=== PATIENT | male | born 1970 | race Native Hawaiian/Other Pacific Islander ===

== ENCOUNTER 2020-12-04 10:08 | Emergency (ER) | payer BC ==
[~2020-12-04] VITALS: Ht 172.7 cm; Wt 101.6 kg
[2020-12-04 10:17] VITALS: TEMP 98.3
[2020-12-04 11:10] LABS: POTASSIUM 3.7 mmol/L (3.6-5.2); SODIUM 138 mmol/L (136-145)
[2020-12-04 12:41] LABS: PLATELET COUNT 263 K/uL (142-355)
[2020-12-04 17:45] VITALS: BP 99/64
== END 2020-12-04 17:45 | disposition home or self-care (01) ==
LOC: ED 10:08
PROVIDERS: Emergency Medicine Emergency Medical Services
DX: R00.0 Tachycardia, unspecified (principal); I49.8 Other specified cardiac arrhythmias; Z20.828 Contact with and (suspected) exposure to other viral communicable diseases
CPT/HCPCS: 80053; 81000; 84443; 84484; 85027; 85379; 86147; 87502; 87635; 93005; 96360; 96361; 96374; 96375; 96376; 99284; J3490; U0003

== ENCOUNTER 2022-09-02 16:44 | Outpatient (CLI) | payer BC | END 2022-09-02 19:08 | disposition home or self-care (01) | LOC: RAD 16:44 | PROVIDERS: ATTEND Internal Medicine | DX: M79.671 Pain in right foot (principal); R22.41 Localized swelling, mass and lump, right lower limb | CPT/HCPCS: 36415; 84550 ==

== ENCOUNTER 2023-05-24 20:43 | Emergency (ER) | payer BC ==
[~2023-05-24] VITALS: Ht 172.7 cm; Wt 88.5 kg
[2023-05-24 20:50] VITALS: TEMP 99
[2023-05-24 22:15] VITALS: BP 132/87
== END 2023-05-24 22:15 | disposition home or self-care (01) ==
LOC: ED 20:43
DX: M10.9 Gout, unspecified (principal); M25.562 Pain in left knee
CPT/HCPCS: 36415; 81000; 84550; 96372; 99283; J1885